=== PATIENT | male | born 1965 | race African-American/Black ===

== ENCOUNTER 2017-01-18 21:13 | Emergency (ER) | payer OTHER, BC ==
[~2017-01-18] VITALS: Ht 170.2 cm; Wt 102.6 kg
[~2017-01-18 21:13] MED LIST: ADVIL200 MG PO; AMOXICILLIN500 MG PO; DAILY VITAMIN1 EAC4 PO; LISINOPRIL20 MG PO; METFORMIN HCL500 MG PO; NYQUIL PO
[2017-01-18] MEDS ORDERED: LANTUS 3 M100 UNITS1 SC (23:07)
[2017-01-18 23:25] VITALS: BP 121/80
== END 2017-01-18 23:26 | disposition home or self-care (01) ==
LOC: EXP 21:13 → EME 21:13 → EXP 23:26
DX: S60.222A Contusion of left hand, initial encounter (principal); Y04.0XXA Assault by unarmed brawl or fight, initial encounter; Y99.0 Civilian activity done for income or pay; I10 Essential (primary) hypertension; E11.9 Type 2 diabetes mellitus without complications; Z79.4 Long term (current) use of insulin
CPT/HCPCS: 73130; 99281; 99284